=== PATIENT | female | born 1980 | race Asian ===

== ENCOUNTER 2016-12-29 12:35 | Emergency (ER) | payer MEDICAID ==
[2016-12-29 15:41] VITALS: BP 136/87
== END 2016-12-29 15:41 | disposition home or self-care (01) ==
LOC: ED 12:35
DX: S86.912A Strain of unspecified muscle(s) and tendon(s) at lower leg level, left leg, initial encounter (principal); W17.89XA Other fall from one level to another, initial encounter; Y93.89 Activity, other specified; Y99.8 Other external cause status; Y92.89 Other specified places as the place of occurrence of the external cause
CPT/HCPCS: Q0092